=== PATIENT | female | born 2000 | race African-American/Black ===

== ENCOUNTER 2019-08-27 12:15 | Emergency (ER) | payer SELFPAY ==
[2019-08-27 12:29] VITALS: BP 158/100; PULSE 94; RESP 20; TEMP 36.6; O2SAT 100; BMI 40.3
--- NOTE | 2019-08-27 13:06 | ED_ITS ---
HPI - Female Genitourinary General: Chief complaint: Urogenital-Female Stated complaint: white discharge Time Seen by Provider: 08/27/19 12:53 History of Present Illness: HPI Narrative: Patient complains about to white vaginal discharge after finishing her period. Patient says she was last sexually active on July 27 unprotected. Patient with history of STIs. Treated x2. MD elicited complaint: vaginal discharge Pertinent past history: STI/STD Location of symptoms: vaginal Associated symptoms: Reports vaginal discharge ([place] after menses.); Deny abdominal pain, headache(s) or nausea Date of Last Menstrual Period: 08/07/19 Review of Systems Const: Denies: fever, chills or body aches Eyes: Denies: change in vision or blurry vision ENMT: Denies: throat pain or nasal congestion Card: Denies: chest pain or shortness of breath on exertion Resp: Denies: shortness of breath, productive cough or non-productive cough GI: Denies: abdominal pain, nausea or vomiting : Reports: vaginal discharge ([place] after menses.) Musc: Denies: extremity pain Skin/Breast: Denies: rash Neuro: Denies: headache Psych: Denies: anxiety or depression Yony/Lymph: Denies: easy bruising PFSH ED PFSH: Statuses (acute, chronic, etc) shown below reflect problem list status as previously entered and may not be historically accurate Social History (Updated 08/27/19 @ 12:04 by Lanny Urbina LPN) Smoking and tobacco status: never smoked Alcohol intake: current Alcohol intake frequency: holidays/special occasions only Female Reproductive History: Date of last menstrual period: 08/07/19 Physical Exam Const: COMMON NORMALS: no apparent distress, average body habitus and oriented x3 HENMT: COMMON NORMALS: normocephalic HEAD & SCALP: normal to inspection and normocephalic FACE & SINUS: normal facial exam Eye: COMMON NORMALS: conjunctivae normal GENERAL EYE: normal appearance of both eyes CONJUNCTIVA: Yes conjunctivae normal Neck/C-Spine: COMMON NORMALS: no JVD Chest: COMMONS NORMALS: inspection of chest normal Resp: COMMON NORMALS: normal respiratory effort and clear to auscultation bilaterally AUSCULTATION: clear to auscultation bilaterally Cardio: COMMON NORMALS: no JVD, regular rate and regular rhythm RATE: regular rate RHYTHM: regular rhythm GI: COMMON NORMALS: normal to inspection, nondistended, normoactive bowel sounds : EXTERNAL FEMALE EXAM: Yes normal appearance of the urethra SPECULUM EXAM - VAGINA: No vaginal swelling, No vaginal tenderness and Yes vaginal discharge Vaginal discharge present: white SPECULUM EXAM - CERVIX: No cervical os open, No abnormal cervical discharge and No cervical tenderness BIMANUAL EXAM - VAGINA & UTERUS: No cervical tenderness BIMANUAL EXAM - ADNEXA, OTHER: Yes normal adnexae and Yes other (Difficult to determine on the adnexa due to patient's habitus) OB/EXTERNAL & SPECULUM: No cervical os open Extremity: COMMON NORMALS: normal to inspection and full ROM Neuro: COMMON NORMALS: oriented x3 Course Vital Signs: Vital signs: Vital Signs Temperature 97.8 F 08/27/19 12:29 Pulse Rate 94 08/27/19 12:29 Respiratory Rate 20 H 08/27/19 12:29 Blood Pressure 158/100 08/27/19 12:29 Pulse Oximetry 100 08/27/19 12:29 Coding Level of Care Code ED Training Program Developer for Chg Fwd Exam Problem Focused
--- NOTE | 2019-08-27 14:09 | PC.NURSE ---
Pelvic exam performed at bedside by Rosalio Bland NP. Chaperoned by this nurse. Swabs obtained, labeled and sent to lab.
[2019-08-27 14:12] LABS: Add Urine Microscopic? YES; Bilirubin Urine Neg (NEGATIVE); Blood Urine Neg (Negative); Glucose Urine UA Norm (Normal); Ketones Urine Negative (Negative); Leukocyte Esterase Urine Negative (Negative); Nitrate Urine Negative (Negative); Protein Urine Neg (Negative); Specific Gravity, Urine 1.015 (1.005-1.030); Urine Appearance Hazy (CLEAR); Urine Color Yellow (Yellow); Urobilinogen Urine 1 mg/dL (Negative); pH Urine 7 (5-7)
[2019-08-27 14:16] LABS: HCG Qualitative Urine. Negative (Negative)
[2019-08-27 14:21] LABS: Squamous Epithelial Cell Urine 15-25 (0-5); WBC Urine 0-4 /hpf (0-5)
[2019-08-27 14:22] LABS: Bacteria Urine 1+
[2019-08-27 14:23] LABS: Add Urine Culture? No
[2019-08-27 15:22] VITALS: BP 145/79; PULSE 79; RESP 18; O2SAT 99
== END 2019-08-27 15:20 | disposition home or self-care (01) ==
PROVIDERS: Emergency Provider Nurse Practitioner Family
DX: N89.8 Other specified noninflammatory disorders of vagina (principal); Z86.19 Personal history of other infectious and parasitic diseases
CPT/HCPCS: 81001; 81025; 87210; 87491; 87591; 99283; A9270; E0352